=== PATIENT | female | born 1965 | race Caucasian/White ===

== ENCOUNTER 2017-12-25 17:17 | Emergency (ER) | payer MEDICARE, MEDICAID ==
[~2017-12-25] VITALS: Ht 157.5 cm; Wt 75.0 kg
[2017-12-25 17:24] VITALS: BP 157/91
[2017-12-25] MEDS ORDERED: INSU100I13 SC (17:47)
[2017-12-25] MEDS ORDERED: TOPI25CA5 PO (17:47)
[2017-12-25] MEDS ORDERED: CARB100T4 PO (17:47)
[2017-12-25] MEDS ORDERED: METF500T4 PO (17:47)
[2017-12-25] MEDS ORDERED: KETOROLAC 30 MG/1 ML IV ONE (18:00)
[2017-12-25] MEDS ORDERED: SODIUM CHLORIDE FLUSH 10ML SYR IVF ONE (18:00)
[2017-12-25] MEDS ORDERED: KETOROLAC 30 MG/1 ML ONE (18:05)
[2017-12-25] MEDS ORDERED: PLEASE ENTER ALLERGIES MC SCH (18:30)
[2017-12-25] MEDS ORDERED: ALBUTEROL SULFATE 2.5 MG/3 ML ONE (19:26)
== END 2017-12-25 19:32 | disposition home or self-care (01) ==
LOC: ED 19:16
DX: S16.1XXA Strain of muscle, fascia and tendon at neck level, initial encounter (principal); S93.401A Sprain of unspecified ligament of right ankle, initial encounter; S70.02XA Contusion of left hip, initial encounter; E78.00 Pure hypercholesterolemia, unspecified; W19.XXXA Unspecified fall, initial encounter; Y93.89 Activity, other specified; Y92.89 Other specified places as the place of occurrence of the external cause; Y99.8 Other external cause status
CPT/HCPCS: 70450; 72125; 72170; 73610; 96374; 99284; J1885